=== PATIENT | female | born 1945 | race Caucasian/White ===

== ENCOUNTER 2016-06-27 15:21 | Inpatient (IN) | payer OTHER ==
--- NOTE | 2016-06-27 15:54 | EDPHY ---
H & P Time Seen by Provider: 06/27/16 15:39 HPI/ROS: CHIEF COMPLAINT: Word finding difficulty; dysphasia HISTORY OF PRESENT ILLNESS: The patient is a 70 y/o female arriving via EMS with her friends from the [place] [employer] with abnormal speech and confusion onset this afternoon. Her friends at bedside report she was normal earlier today and drove herself up from [place] without issue. Her friends say she seemed sleepy at the start of the play around 14:00 today, about 1 hour and 45 minutes prior to assessment in the ED. The friends report second-hand that the patient seemed progressively confused during the play, prompting them to ultimately call EMS. The patient has a history of multiple myeloma and is currently treated with chemotherapy. She also recently had pneumonia and reportedly is using "lots of NyQuil" at home as well as an unknown antibiotic for a sinus infection. She has been able to follow commands and her EMS BGL was 80. She denies alcohol use today. Unknown if on anticoagulants. She denies chest pain or shortness of breath. History is limited as patient is unable to significantly contribute to history due to confusion with speech. I spoke with patient's daughter, Beth (phone number [phone]), and obtained further history. She tells me that her mother is receiving chemotherapy for multiple myeloma every other Tuesday. She has been tolerating this well, with side effect of fatigue. She had an MRI scan of the brain performed about 3 weeks ago at a facility off [facility]. She reportedly has brain lesions that were seen on that study. About 4 weeks ago she was diagnosed with a pneumonia for which she was treated with supplemental oxygen, inhalers, and antibiotics. She was not hospitalized. Early last week she was diagnosed with sinusitis and was started on an antibiotic for that. Neither the patient or her family members are able to provide a list of current medications. Her primary care physician is Dr. Monet and her oncologist is Dr. Kat. REVIEW OF SYSTEMS: Limited by patient's condition. Exam Limitations: Clinical condition - Personal History Tetanus Vaccine Date: 2013 - Medical/Surgical History PMH: PMH includes: 1. Multiple myeloma 2. Arthritis 3. Bilateral knee replacements Hx Asthma: No Hx Chronic Respiratory Disease: No Hx Diabetes: No Hx Cardiac Disease: No Hx Renal Disease: No Hx Cirrhosis: No Hx Alcoholism: No Hx HIV/AIDS: No Hx Splenectomy or Spleen Trauma: No Other PMH: multiple myeloma, arthritis, compressed vertebrae, stem cell transplant 2012, bilateral knee replacements, cataract sx, kyphoplasty - Social History Smoking Status: Never smoked Additional Social History: Friends at bedside. Lives in [place]. Daughter: Beth Lilly [phone] - Physical Exam Exam: General Appearance: Initial vital signs were heart rate of 124, respiratory rate 24, room air pulse ox 97%, and blood pressure 163/89. Somnolent but easily awakened. Head, normocephalic atraumatic. Eyes: Pupils equal and round, no conjunctival injection, no discharge. ENT, Mouth: Mucous membranes are moist, no oropharyngeal erythema or edema. Neck: No lymphadenopathy, supple. No carotid bruits. Respiratory: Lungs are clear to auscultation; no wheezes, rales, or rhonchi. Cardiovascular: Tachycardic; no murmur, rub, or gallop. Gastrointestinal: Abdomen is obese soft and non tender, no masses or organomegaly, bowel sounds normal. Skin: Warm and dry, no rashes, normal color. Extremities: No lower extremity edema, no calf tenderness or swelling. Neurological: Alert, oriented to person only. Confused speech. Following commands. No pronator drift. Moving all four extremities easily and equally. DEANDRE. EOMI. Facial expression symmetric. Tongue midline. Psychiatric: Flat affect. No agitation. Constitutional: Initial Vital Signs Temperature (C) 37.7 C 06/27/16 16:11 Heart Rate 124 H 06/27/16 16:11 Respiratory Rate 24 H 06/27/16 16:11 Blood Pressure 163/89 H 06/27/16 16:11 O2 Sat (%) 97 06/27/16 16:11 O2 Delivery Mode Nasal Cannula O2 (L/minute) 2 Allergies/Adverse Reactions: No Known Allergies Allergy (Unverified 08/06/15 17:23) Home Medications: Medication Instructions Recorded Benadryl 08/06/15 GABAPENTIN 08/06/15 Hydrocodone/APAP 5/325 08/06/15 Hydrocodone/APAP 5/325 [[place] 1 - 2 each PO Q4-6PRN PRN #20 tab 08/06/15 5/325] Multivitamin 08/06/15 Unknown Chemo 08/06/15 Vitamin C 08/06/15 Vitamin D 08/06/15 Warfarin Sodium 08/06/15 Medical Decision Making ED Course/Re-evaluation: IV established. Labs drawn including CBC, CHEM, d-dimer, EtOH serum, troponin, coag. UA ordered. Patient placed on basket assembler. Chest x-ray ordered. 1537: The 12 lead EKG was interpreted by myself. Sinus tachycardia rate 121. See hard copy and/or "tracemaster" electronic copy for interpretation. 1540: I was called into the patient's room urgently for neurological assessment. The RN reports the patient is answering questions nonsensically with a string of numbers and her speech is confused, but she is following commands. 1542: [place]oke alert called due to acute onset dysphasia and confusion. 1544: Patient sent to CT. 1547: Consulted with Dr. Fermin, [facility]. He will assess patient via telemedicine bot as soon as she returns from CT. 1555: Patient being assessed by Dr. Fermin, telemedicine neurologist. 1600: Study: CT of the Head Indication: confusion, speech difficulty Results: CT scan of the head was obtained. The results of the study are 1. Mild cerebral and cerebellar atrophy. 2. Moderate bilateral sphenoid and right maxillary sinusitis with air-fluid levels. 3. Old nasal bone fracture. 4. No acute hemorrhage or definite acute infarct. 5. Consider MRI of the brain without and with contrast enhancement, if there is continued clinical concern. The study was read by the radiologist, Dr. Gordon. I viewed the images myself on the PACS system. 1602: Patient denies weakness or paresthesias to Dr. Fermin. She continues to have word-finding difficulty and has difficulty staying awake during his assessment. Dr. Fermin thinks her symptoms are more global in nature and does not recommend any interventions for stroke at this time. He does recommend brain MRI when appropriate. 1705: Reassessed patient. Her urine is non-negative for opiates. She has great difficulty telling me any history of her day today and does not know she is in [place]. She continues to be tachycardic around 117 after 1L IV NS. Friend at bedside says she spoke with the patient's 89 y/o mother who reports the patient was acting odd around noon today and seemed confused that she was driving to a play. Her mother also emphasizes that the patient has been using a lot of NyQuil and DayQuil for her ongoing cough. Study: Chest x-ray Indication: AMS Results: Chest x-ray was obtained. The results of the study are 1. Poor inspiratory phase with mild bilateral peribronchial thickening and left lower lobe patchy opacity which may represent atelectasis. 2. Left lower lobe superimposed pneumonia cannot be excluded. 3. Consider chest two views when the patient's medical condition permits. The study was read by the radiologist, Dr. Gordon. I viewed the images myself on the PACS system. 1735: Spoke with hospitalist service. Dr. Brown accepts admission. 174: Spoke with patient's daughter Jess via phone. Her daughter reports she's had pneumonia for the last 4 weeks with oxygen and unknown antibiotics as well as antibiotics for a sinus infection. She also tells me that brain lesions were noted on an MRI within the past month. Plan for lactate and 1gm IV Ceftriaxone for suspected infection (possible pneumonia?). I do not know what antibiotics she has been taking. Blood cultures obtained. UA negative for signs of infection. 650mg rectal Tylenol administered. At this point in time it is unclear to me whether her altered mental status and speech difficulty is related to infection. She did develop a temperature of 38 while in the emergency department. This was treated with Tylenol. Lactate was drawn. Lactate is normal. Family members tell me that she was diagnosed with a pneumonia about 4 years ago and did require supplemental oxygen, which has been discontinued. She was also treated with inhalers and an unknown antibiotic. The patient has had a continued cough. It is possible that this is persistent or recurrent pneumonia. She received a total of 2 L IV normal saline while in the department but continued with tachycardia. She denies chest pain or difficulty breathing when I question her about this. D-dimer is normal. Pulmonary embolus was a consideration with tachycardia and reported hypoxia. No evidence of electrolyte or glucose abnormality. Blood alcohol is negative. Urine drug screen is positive for opiates. I do not know what medications are prescribed to her. She has also reportedly been taking lots of DayQuil and NyQuil. It is possible that her altered mental status is related to medications. Another possibility is that the reported brain lesions are contributing to her alteration in mental status. She will need an MRI scan of her brain. Differential Diagnosis: Altered mental status including but not limited to hypoglycemia, infectious process, electrolyte abnormality, head injury, stroke, malignancy, and intoxicants. - Data Points Laboratory Results: Laboratory Results 06/27/16 15:30 06/27/16 15:30 06/27/16 06/27/16 06/27/16 16:30 15:30 15:30 WBC RBC Hgb Hct MCV MCH MCHC RDW Plt Count MPV Neut % (Auto) Lymph % (Auto) Yell % (Auto) Eos % (Auto) Baso % (Auto) Nucleat RBC Rel Count Absolute Neuts (auto) Absolute Lymphs (auto) Absolute Monos (auto) Absolute Eos (auto) Absolute Basos (auto) Absolute Nucleated RBC Immature Gran % Immature Gran # PT INR APTT D-Dimer Sodium 133 mEq/L L mEq/L (134-144) Potassium 4.6 mEq/L mEq/L (3.5-5.2) Chloride 98 mEq/L mEq/L (97-110) Carbon Dioxide 27 mEq/l mEq/l (22-31) Anion Gap 8 mEq/L mEq/L (8-16) BUN 11 mg/dL mg/dL (7-23) Creatinine 0.8 mg/dL mg/dL (0.6-1.0) Estimated GFR > 60 Glucose 97 mg/dL mg/dL (70-100) Calcium 9.2 mg/dL mg/dL (8.5-10.4) Troponin I < 0.012 ng/mL ng/mL (0-0.034) Urine Color YELLOW Urine Appearance CLEAR Urine pH 6.0 (5.0-7.5) Ur Specific [place] 1.018 (1.002-1.030) Urine Protein NEGATIVE (NEGATIVE) Urine Ketones NEGATIVE (NEGATIVE) Urine Blood NEGATIVE (NEGATIVE) Urine Nitrate NEGATIVE (NEGATIVE) Urine Bilirubin NEGATIVE (NEGATIVE) Urine Urobilinogen NEGATIVE EU EU (0.2-1.0) Ur Leukocyte Esterase NEGATIVE (NEGATIVE) Ur Culture Indicated? NOT INDICATED (NI) Urine Glucose NEGATIVE (NEGATIVE) Urine Opiates Screen NON-NEGATIVE H (NEGATIVE) Urine Barbiturates NEGATIVE (NEGATIVE) Ur Phencyclidine Scrn NEGATIVE (NEGATIVE) Ur Amphetamine Screen NEGATIVE (NEGATIVE) U Benzodiazepines Scrn NEGATIVE (NEGATIVE) Urine Cocaine Screen NEGATIVE (NEGATIVE) U Marijuana (THC) Screen NEGATIVE (NEGATIVE) Ethyl Alcohol < 10 mg/dL mg/dL (0-10) 06/27/16 06/27/16 15:30 15:30 WBC 12.86 10^3/uL H 10^3/uL (3.80-9.50) RBC 4.04 10^6/uL L 10^6/uL (4.18-5.33) Hgb 13.7 g/dL g/dL (12.6-16.3) Hct 40.2 % % (38.0-47.0) MCV 99.5 fL fL (81.5-99.8) MCH 33.9 pg pg (27.9-34.1) MCHC 34.1 g/dL g/dL (32.4-36.7) RDW 13.7 % % (11.5-15.2) Plt Count 164 10^3/uL 10^3/uL (150-400) MPV 9.6 fL fL (8.7-11.7) Neut % (Auto) 82.2 % H % (39.3-74.2) Lymph % (Auto) 10.7 % L % (15.0-45.0) Yell % (Auto) 5.5 % % (4.5-13.0) Eos % (Auto) 1.1 % % (0.6-7.6) Baso % (Auto) 0.3 % % (0.3-1.7) Nucleat RBC Rel Count 0.0 % % (0.0-0.2) Absolute Neuts (auto) 10.56 10^3/uL H 10^3/uL (1.70-6.50) Absolute Lymphs (auto) 1.38 10^3/uL 10^3/uL (1.00-3.00) Absolute Monos (auto) 0.71 10^3/uL 10^3/uL (0.30-0.80) Absolute Eos (auto) 0.14 10^3/uL 10^3/uL (0.03-0.40) Absolute Basos (auto) 0.04 10^3/uL 10^3/uL (0.02-0.10) Absolute Nucleated RBC 0.00 10^3/uL 10^3/uL (0-0.01) Immature Gran % 0.2 % % (0.0-1.1) Immature Gran # 0.03 10^3/uL 10^3/uL (0.00-0.10) PT 15.4 SEC H SEC (12.0-15.0) INR 1.22 H (0.83-1.16) APTT 29.6 SEC SEC (23.0-38.0) D-Dimer 0.46 ug/mLFEU ug/mLFEU (0.00-0.50) Sodium Potassium Chloride Carbon Dioxide Anion Gap BUN Creatinine Estimated GFR Glucose Calcium Troponin I Urine Color Urine Appearance Urine pH Ur Specific [place] Urine Protein Urine Ketones Urine Blood Urine Nitrate Urine Bilirubin Urine Urobilinogen Ur Leukocyte Esterase Ur Culture Indicated? Urine Glucose Urine Opiates Screen Urine Barbiturates Ur Phencyclidine Scrn Ur Amphetamine Screen U Benzodiazepines Scrn Urine Cocaine Screen U Marijuana (THC) Screen Ethyl Alcohol Medications Given: Discontinued Medications Acetaminophen (Tylenol Rectal) 650 mg [place] EDNOW ONE Stop: 06/27/16 18:00 Last Admin: 06/27/16 18:11 Dose: 650 mg Sodium Chloride (Ns) 1,000 mls @ 0 mls/hr IV ONCE ONE PRN Reason: Wide Open Stop: 06/27/16 17:51 Last Admin: 06/27/16 18:04 Dose: 1,000 mls Sodium Chloride (Ns) 1,000 mls @ 0 mls/hr IV ONCE ONE PRN Reason: Wide Open Stop: 06/27/16 16:01 Last Admin: 06/27/16 16:00 Dose: 1,000 mls Ceftriaxone Sodium/Dextrose (Rocephin 1 Gm (Premix)) 50 mls @ 100 mls/hr IV EDNOW ONE PRN Reason: Protocol Stop: 06/27/16 18:27 Last Admin: 06/27/16 18:05 Dose: 50 mls Departure - Departure Disposition: [facility] Inpatient Acute Clinical Impression: Altered mental status Qualifiers: Altered mental status type: disorientation Qualified Code(s): R41.0 - Disorientation, unspecified Pneumonia Qualifiers: Pneumonia type: due to unspecified organism Laterality: left Lung location: lower lobe of lung Qualified Code(s): J18.1 - Lobar pneumonia, unspecified organism Condition: Fair Report Scribed for: Kim Rodrigues Report Scribed by: Rosalie Medel Date of Report: 06/27/16 Time of Report: 15:59 Physician Review and Approval Statement: 06/27/16 16:23 Portions of this note were transcribed by the medical records library professor. I, Dr. Kim Rodrigues, personally performed the history, physical exam, and medical decision- making; and confirmed the accuracy of the information in the transcribed note.
[2016-06-27] MEDS ORDERED: NS 1,000 ML IV ONE ×2 (16:00→17:50)
[2016-06-27 16:03] LABS: ANION GAP 8 mEq/L (8-16); CALCIUM 9.2 mg/dL (8.5-10.4); CARBON DIOXIDE 27 mEq/l (22-31); CHLORIDE 98 mEq/L (97-110); CREATININE 0.8 mg/dL (0.6-1.0); GLOMERULAR FILTRATION RATE > 60; GLUCOSE 97 mg/dL (70-100); POTASSIUM 4.6 mEq/L (3.5-5.2); SODIUM 133 mEq/L (134-144)
[2016-06-27 16:05] LABS: % IMMATURE GRANULYOCYTES 0.2 % (0.0-1.1); ABSOLUTE IMMATURE GRANULOCYTES 0.03 10^3/uL (0.00-0.10); ADD DIFF? NO; ADD MORPH? NO; ADD SCAN? NO; ATYPICAL LYMPHOCYTE FLAG 10 (0-99); FRAGMENT RBC FLAG 0 (0-99); HEMATOCRIT 40.2 % (38.0-47.0); HEMOGLOBIN 13.7 g/dL (12.6-16.3); LEFT SHIFT FLG 0 (0-99); LIPEMIA HEMOLYSIS FLAG 90 (0-99); MEAN CELL HEMOGLOBIN 33.9 pg (27.9-34.1); MEAN CELL HEMOGLOBIN CONCENTR. 34.1 g/dL (32.4-36.7); MEAN CELL VOLUME 99.5 fL (81.5-99.8); MEAN PLATELET VOLUME 9.6 fL (8.7-11.7); PLATELET CLUMPS FLAG 0 (0-99); PLATELET COUNT 164 10^3/uL (150-400); RED BLOOD CELL COUNT 4.04 10^6/uL (4.18-5.33); RED CELL DISTRIBUTION WIDTH 13.7 % (11.5-15.2)
[2016-06-27 16:07] LABS: APTT 29.6 SEC (23.0-38.0)
[2016-06-27 16:10] LABS: INR 1.22 (0.83-1.16); PROTIME(PATIENT) 15.4 SEC (12.0-15.0)
[2016-06-27 16:14] LABS: TROPONIN I < 0.012 ng/mL (0-0.034)
[2016-06-27 16:28] LABS: ETHANOL SERUM < 10 mg/dL (0-10)
[2016-06-27 16:59] LABS: COLOR YELLOW; LEUKOCYTE ESTERASE,URINE NEGATIVE (NEGATIVE); NITRITE,URINE NEGATIVE (NEGATIVE)
[2016-06-27] MEDS ORDERED: ACETAMINOPHEN 500 MG TAB ONE (17:34)
--- NOTE | 2016-06-27 17:49 | CPEKG ---
Heart Rate: 118 RR Interval: 508 P-R Interval: 192 QRSD Interval: 78 QT Interval: 316 QTC Interval: 443 P [place]: 58 QRS [place]: 21 T Wave [place]: 49 EKG Severity - OTHERWISE NORMAL ECG - EKG Impression: SINUS TACHYCARDIA Electronically Signed By: Kim Rodrigues 27-Jun-2016 18:50:46
[2016-06-27] MEDS ORDERED: ACETAMINOPHEN 650 MG SUPP PR ONE (17:59)
[2016-06-27] MEDS ORDERED: ACETAMINOPHEN 325 MG TAB PO PRN (20:33)
[2016-06-27] MEDS ORDERED: ONDANSETRON DISINTEGRATING 4 MG TAB PO PRN (20:33)
[2016-06-27] MEDS ORDERED: ONDANSETRON 4 MG/2 ML VIAL IVP PRN (20:33)
[2016-06-27] MEDS ORDERED: AZITHROMYCIN IV 500 MG in D5W 250 ML IV ONE (20:36)
[2016-06-27] MEDS ORDERED: D5W 1/2 NS 1,000 ML IV SCH (20:45)
--- NOTE | 2016-06-27 20:59 | GHP ---
DATE OF ADMISSION: 06/27/2016 CHIEF COMPLAINT: Altered mental status. HISTORY OF PRESENT ILLNESS: A 70-year-old female who actually lives, I believe, in [facility]. S he was here with friends at the [place] [employer] and they noticed that she was acting peculiar . She was having confusion, word-finding difficulty, and abnormal speech. Apparently, her mother s aid she was not acting completely normal at home before she left. EMS was called and her blood suga r was normal. Her friend said that she has been taking a lot of NyQuil and DayQuil. She recently had a diagnosis of pneumonia and finished a course of antibiotics, otherwise she had some antibiotics. She had a familia ut of pneumonia 4 weeks ago and finished antibiotics at that time. She also recently was diagnosed with sinusitis and has been on antibiotics. She has a history of multiple myeloma and began chemotherapy. She did have an MRI done 3 weeks ago which showed some brain lesions. History is obtained mostly from the chart and a little bit from the patient, but she is still fairly confused. REVIEW OF SYSTEMS: Difficult to obtain secondary to patient's state. PAST MEDICAL HISTORY: 1. Multiple myeloma. 2. Pneumonia 4 weeks ago. 3. Recent sinusitis. 4. Compression fractures. 5. Stem cell transplant in 2012. MEDICATIONS: Unknown at this time. SOCIAL HISTORY: Unknown. Lives in [place]. FAMILY HISTORY: Unknown. PHYSICAL EXAMINATION: VITAL SIGNS: Temperature is actually 38.3, blood pressure is 117/95, heart r ate 112, oxygen saturation 94% on 2 L. GENERAL: The patient is well developed, in no apparent dist ress. HEENT: Nonicteric sclerae. Extraocular movements intact. Moist mucous membranes. NECK: S upple. No thyromegaly. LUNGS: Poor effort, but clear to auscultation bilaterally. CARDIOVASCULAR : Regular rate and rhythm. No murmurs, gallops. ABDOMEN: Positive bowel sounds. Soft, nontender , nondistended. No hepatosplenomegaly. EXTREMITIES: No clubbing, cyanosis, or edema. SKIN: With out rash. Warm, dry, intact. NEUROLOGIC: Alert, is oriented to person only, does know that she is in [place]. Speech sometimes makes sense, sometimes is unintelligible. She has 5/5 upper extremit y strength. No cranial nerve defects. LABORATORY DATA: White count slightly elevated at 12, otherwise normal. Lactate is normal. Chemis try is normal. UA is negative. Urine toxicology is positive for opiates. CT of the head shows no acute findings other than sinusitis. ASSESSMENT: This is a 70-year-old female presenting with acute encephalopathy. PLAN: 1. Acute encephalopathy. This seemed to be more global than focal and, thus, a CVA is less likely. She did come in as a stroke alert and [facility] also thought this was probably global. M ost likely medication-related, probably from the NyQuil and DayQuil, and she does have opiates in he r urine. We will hold all these medications and see if she clears in the morning. She does have a low-grade fever and there might be an element of early pneumonia. Her chest x-ray was personally re viewed and does show possible left lower lobe pneumonia. 2. Possible pneumonia. The patient has been given some ceftriaxone in the emergency department. W e will continue that. We will add azithromycin. 3. History of multiple myeloma, getting chemotherapy. She does have a brain lesion, I guess, per r eport. If she does not improve, we will consider MRI of the brain. 4. Admission. Patient will be admitted under full admission status. Case discussed with the ER ph ysician. /[id number]/MODL
[2016-06-28] MEDS: HYDROCODONE/APAP 5/325 TAB PO PRN ×2 (04:37→21:21)
[2016-06-28 06:34] LABS: % IMMATURE GRANULYOCYTES 0.5 % (0.0-1.1); ABSOLUTE IMMATURE GRANULOCYTES 0.06 10^3/uL (0.00-0.10); ADD DIFF? NO; ADD MORPH? NO; ADD SCAN? NO; ATYPICAL LYMPHOCYTE FLAG 20 (0-99); FRAGMENT RBC FLAG 0 (0-99); HEMATOCRIT 37.4 % (38.0-47.0); HEMOGLOBIN 12.6 g/dL (12.6-16.3); LEFT SHIFT FLG 0 (0-99); LIPEMIA HEMOLYSIS FLAG 80 (0-99); MEAN CELL HEMOGLOBIN 34.1 pg (27.9-34.1); MEAN CELL HEMOGLOBIN CONCENTR. 33.7 g/dL (32.4-36.7); MEAN CELL VOLUME 101.4 fL (81.5-99.8); MEAN PLATELET VOLUME 10.3 fL (8.7-11.7); PLATELET CLUMPS FLAG 10 (0-99); PLATELET COUNT 150 10^3/uL (150-400); RED BLOOD CELL COUNT 3.69 10^6/uL (4.18-5.33); RED CELL DISTRIBUTION WIDTH 13.8 % (11.5-15.2)
[2016-06-28 06:38] LABS: ALANINE AMINOTRANSFERASE 31 IU/L (9-52); ALBUMIN 2.8 g/dL (3.5-5.0); ALKALINE PHOSPHATASE 63 IU/L (38-126); ANION GAP 8 mEq/L (8-16); ASPARTATE AMINOTRANSFERASE 18 IU/L (14-46); BILIRUBIN,TOTAL 0.9 mg/dL (0.1-1.4); CALCIUM 8.1 mg/dL (8.5-10.4); CARBON DIOXIDE 24 mEq/l (22-31); CHLORIDE 104 mEq/L (97-110); CREATININE 0.7 mg/dL (0.6-1.0); GLOMERULAR FILTRATION RATE > 60; GLUCOSE 98 mg/dL (70-100); POTASSIUM 4.1 mEq/L (3.5-5.2); SODIUM 136 mEq/L (134-144); TOTAL PROTEIN 5.3 g/dL (6.3-8.2)
[2016-06-28] MEDS: ENOXAPARIN 40 MG/0.4 ML SYR SC SCH (09:40)
[2016-06-28] MEDS: AZITHROMYCIN 250 MG TAB PO SCH (09:41)
--- NOTE | 2016-06-28 09:45 | HOSPPROG ---
Hospitalist Progress Note Assessment/Plan: DIAGNOSES: -ACUTE ENCEPHALOPATHY, MULTIFACTORIAL, IMPROVING -ACUTE FEBRILE ILLNESS, SUSPECT COMMUNITY-ACQUIRED PNEUMONIA IN IMMUNOCOMPROMISED HOST -ACUTE SEPSIS WITHOUT ACIDOSIS OR ORGAN FAILURE -MULTIPLE MYELOMA WITH RECENT RECURRENCE, CURRENTLY RECEIVING CHEMOTHERAPY, PRIOR HISTORY STEM-CELL TRANSPLANT -CHRONIC ANTICOAGULATION WITH CURRENTLY SUBTHERAPEUTIC INR ON OUTPATIENT REGIMEN She is more alert and oriented this morning. She still has cough and dyspnea and some lightheadedness. She Has not had an influenza test yet says that as needed Her presumed diagnosis is pneumonia as she does have cough dyspnea and fever with immune compromise. However her chest initial chest x-ray does not show definitive infiltrate. There is a repeat x-ray to be done this morning and I will review that. The differential diagnosis could also include pulmonary embolism for which she would be at risk. Will consider possible evaluation for that after reviewing her chest x-ray. D-dimer would not be helpful here PLANS: -continue current antibiotics -follow blood cultures -influenza test now -review her chest x-ray and consider possibly CT scan for definitive diagnosis to differentiate between pneumonia and PE -as she does have some wheezing on exam will ask for bedside spirometry, but she has no history of asthma or smoking -she was supposed to have a chemotherapy dose in [place] today, that will most likely be held but I will ask the oncology team to assess this question -Will use at the moment low-dose DVT prophylaxis Lovenox while while waiting for INR to come up, but will need to find out more about why she is on Coumadin and full-dose may be indicated SUBJECTIVE: Still with a lot of coughing and states she feels lightheaded when she takes a breath or when she coughs Still short of breath No chest pain leg pain or swelling OBJECTIVE Vitals reviewed: T-max 38.3degrees, still tachycardic, less tachypneic, blood pressure is good Exam: alert oriented talkative She has mild Respiratory laboring at rest and has to catch breath between sentences skin diaphoretic, warm, color ok resps not labored lungs diminished breath sounds with some wheezing heart regular abd soft nondistended nontender, bowel sounds present limbs warm, no edema iv site ok Microbiology: Cultures negative to date Objective: Vital Signs Temp Pulse Resp BP Pulse Ox 36.6 C 89 20 113/70 91 L 06/28/16 07:16 06/28/16 07:16 06/28/16 07:16 06/28/16 07:16 06/28/16 07:16 Laboratory Results 06/28/16 05:50 06/28/16 05:50 06/27/16 06/28/16 06/29/16 06:59 06:59 06:59 Intake Total 3150 Balance 3150 PT 15.4 SEC (12.0-15.0) H 06/27/16 15:30 INR 1.22 (0.83-1.16) H 06/27/16 15:30 ICD10 Worksheet Patient Problems: Problems Problem Status Onset Altered mental status Acute Pneumonia Acute
[2016-06-29 07:48] VITALS: PULSE 74; RESP 18; TEMP 98.1; O2SAT 93
[2016-06-29] MEDS: AZITHROMYCIN 250 MG TAB PO SCH (08:17)
[2016-06-29] MEDS: ENOXAPARIN 40 MG/0.4 ML SYR SC SCH (08:17)
[2016-06-29] MEDS: HYDROCODONE/APAP 5/325 TAB PO PRN (08:19)
[2016-06-29] MEDS ORDERED: HYDROCODONE/APAP 5/325 TAB PO PRN (13:08)
[2016-06-29 13:13] VITALS: BP 125/85
[2016-06-29] MEDS ORDERED: DARATUMUMAB IV SCH (13:15)
[2016-06-29] MEDS ORDERED: GABAPENTIN 300 MG CAP PO SCH (16:00)
[2016-06-29] MEDS ORDERED: WARFARIN SODIUM 5 MG TAB PO SCH (16:00)
--- NOTE | 2016-06-29 18:03 | PDDCSUM ---
Discharge Summary Discharge Summary: DISCHARGE DIAGNOSES: -acute encephalopathy, resolved -community aquired pneumonia -sepsis without organ failrue -multiple myeloma on anticaogulation COMPLICATIONS: NONE HOSPITAL COURSE: This patient had sudden onset of confusion while out with friends. On arrival here she was confused and had evidence of a pneumonia without respiratory failure and with mild early sepsis. She was hydrated and treated with antibiotics and responded very quickly. By today she is feeling nearly normal, has no fever, normal vital signs, has normal mental status, and no dyspnea or exertion limitation. She is stable for DC home. She is discharged to home with levaquin to complete a 7 day course. MEDICATION CHANGES: addition of levaquin FOLLOW UP: with her oncologist this week
[2016-06-29] MEDS ORDERED: ACYCLOVIR 400 MG TAB PO SCH (21:00)
[2016-06-30] MEDS ORDERED: MULTIVITAMINS 1 EACH TAB PO SCH (09:00)
[2016-06-30] MEDS ORDERED: Herbals/Supplements -Info Only PO SCH (09:00)
== END 2016-06-29 13:50 | disposition home or self-care (01) | DRG 871 ==
LOC: EDUNIT# → F3N 18:23
PROVIDERS: ADMIT Internal Medicine; ATTEND Internal Medicine
DX: A41.9 Sepsis, unspecified organism (principal); J18.9 Pneumonia, unspecified organism; G93.40 Encephalopathy, unspecified; C90.00 Multiple myeloma not having achieved remission; Z96.651 Presence of right artificial knee joint
CPT/HCPCS: 80305; 96365; 97116-GP; 97161-GP; 97165-GO; G0480; G8978-GP-CI; G8979-GP-CI; G8980-GP-CI; G8987-GO-CI; G8988-GO-CI; G8989-GO-CI; J0456; J0696; J1650